=== PATIENT | male | born 1955 | race Caucasian/White ===

== ENCOUNTER → 2016-10-17 19:08 | Outpatient (CLI) | payer MEDICAID ==
[2015-09-12 08:35] VITALS: BMI 23.5
[~2016-10-17 19:08] MED LIST: ACETAMINOPHEN500 M1 PO; ALDACTONE50 MG PO; ATIVAN0.5 MG PO; BAYER CHEWABLE81 MG PO; COREG6.25 MG PO; COZAAR50 MG PO; EFFIENT10 MG PO; GLUCOPHAGE500 MG PO; IPRAT-ALBUT 0.5-3 ML UPD; K-DUR20 MEQ PO; LASIX40 MG PO; LEVAQUIN500 MG PO; LIPITOR20 MG PO; LISINOPRIL10 MG PO; MAG-OX 400 MG400 MG PO; METOPROLOL TART50 MG PO; PEPCID20 MG PO; PREDNISONE10 MG PO; TESSALON PERLE100 MG PO; ZOFRAN4 MG PO
[2016-10-17 20:07] LABS: CHOL - HDL RATIO 4.2 ratio (2.3-4.9); LDL-HDL RATIO 2.8 ratio (1.5-3.5)
== END | disposition home or self-care (01) ==
LOC: D.LABREF 19:08
PROVIDERS: Internal Medicine Interventional Cardiology
DX: E78.5 Hyperlipidemia, unspecified (principal)

== ENCOUNTER 2017-09-05 18:49 | Inpatient (IN) | payer MEDICAID ==
[~2017-09-05] VITALS: Ht 170.2 cm; Wt 74.1 kg
[2017-09-05 19:28] LABS: BASOPHILS 0.1 % (0-2); EOSINOPHILS 0.4 % (0-7); HEMATOCRIT 41.1 % (42.0-54.0); HEMOGLOBIN 14.1 g/dL (13.5-17.5); IMMATURE GRANULOCYTES 0.3 % (0-5); LYMPHOCYTES 7.6 % (15-50); MCH 31.2 pg (26.0-34.0); MCHC 34.3 g/dL (31.0-37.0); MCV 90.9 fL (80.0-100.0); MEAN PLATELET VOLUME 11.7 fL (7.4-10.4); MONOCYTES 8.4 % (2-11); NEUTROPHILS 83.2 % (40-80); PLATELET COUNT 151 10x3/uL (130-400); RBC 4.52 10x6/uL (4.20-6.10); WBC 11.5 10x3/uL (4.8-10.8)
[2017-09-05 19:42] LABS: INR 1.21 (0.85-1.17); PROTIME 14.9 SECONDS (11.6-15.0)
[2017-09-05 19:44] LABS: D-DIMER-QUANTITATIVE 2.01 ug/mLFEU (0.20-0.54)
[2017-09-05 20:09] VITALS: BP 93/61
[2017-09-05 20:24] VITALS: BP 89/43
[2017-09-05 20:24] LABS: ALKALINE PHOSPHATASE 94 U/L (46-116); ALT (SGPT) 68 U/L (10-68); CALC OSMOLALITY 278 mosm/kg (275-300); CALCIUM 9.1 mg/dL (8.5-10.1); CARBON DIOXIDE 27.9 mmol/L (21.0-32.0); CHLORIDE - SERUM 96 mmol/L (98-107); CKMB 2.5 U/L (0.0-3.6); CREATINE KINASE 223 UL (21-232); CREATININE - SERUM 1.1 mg/dL (0.6-1.3); GLUCOSE 207 mg/dL (74-106); PRO BNP 6417 pg/mL (0-125); PROTEIN - SERUM 7.6 g/dL (6.4-8.2); SODIUM 135 mmol/L (136-145); UREA NITROGEN 20 mg/dL (7-18); eGFR NON AFRICAN AMERICAN 72 mL/min (90-120)
[2017-09-05 20:26] LABS: POTASSIUM - SERUM 2.8 mmol/L (3.5-5.1)
[2017-09-05 20:27] LABS: TROPONIN-I 0.171 ng/mL (0.000-0.060)
[2017-09-05 20:48] LABS: APPEARANCE CLEAR (CLEAR); BILIRUBIN NEGATIVE (NEGATIVE); COLOR YELLOW (YELLOW); GLUCOSE NEGATIVE (NEGATIVE); KETONE NEGATIVE (NEGATIVE); NITRITE NEGATIVE (NEGATIVE); PROTEIN NEGATIVE (NEGATIVE); SPECIFIC GRAVITY 1.015 (1.005-1.020); UROBILINOGEN NORMAL (NORMAL)
[2017-09-05 20:57] LABS: UDS - AMPHET POSITIVE QUAL (NEGATIVE); UDS - BARB NEGATIVE QUAL (NEGATIVE); UDS - BENZO NEGATIVE QUAL (NEGATIVE); UDS - COCAINE NEGATIVE QUAL (NEGATIVE); UDS - OPIATE NEGATIVE QUAL (NEGATIVE); UDS - PCP NEGATIVE QUAL (NEGATIVE); UDS - THC NEGATIVE QUAL (NEGATIVE)
[2017-09-05 21:00] VITALS: BP 72/36
[2017-09-05 21:29] VITALS: BP 64/23
[2017-09-05 22:31] VITALS: BP 88/64
[2017-09-05 23:29] VITALS: BP 109/65
[2017-09-06] VITALS (82 sets, daily range): BP systolic 87–133; BP diastolic 46–96; BMI 22.5; BMI 22.4
[2017-09-06] MEDS ORDERED: FLOMAX0.4 MG PO (02:31)
[2017-09-06] MEDS ORDERED: LANTUS INSULIN10 ML SC (02:31)
[2017-09-06] MEDS ORDERED: NITROQUICK0.4 MG SL (03:00)
[2017-09-06 03:11] LABS: BASOPHILS 0.1 % (0-2); EOSINOPHILS 0 % (0-7); HEMATOCRIT 38.8 % (42.0-54.0); HEMOGLOBIN 13.2 g/dL (13.5-17.5); IMMATURE GRANULOCYTES 0.4 % (0-5); LYMPHOCYTES 6.6 % (15-50); MCH 30.8 pg (26.0-34.0); MCV 90.7 fL (80.0-100.0); MEAN PLATELET VOLUME 11.6 fL (7.4-10.4); MONOCYTES 6.8 % (2-11); NEUTROPHILS 86.1 % (40-80); PLATELET COUNT 139 10x3/uL (130-400); RBC 4.28 10x6/uL (4.20-6.10); WBC 13.5 10x3/uL (4.8-10.8)
[2017-09-06 03:52] LABS: ALBUMIN 2.9 g/dL (3.4-5.0); ALKALINE PHOSPHATASE 87 U/L (46-116); ALT (SGPT) 59 U/L (10-68); CALCIUM 8.3 mg/dL (8.5-10.1); CHLORIDE - SERUM 99 mmol/L (98-107); CKMB 1.9 U/L (0.0-3.6); CREATININE - SERUM 1.1 mg/dL (0.6-1.3); PHOSPHOROUS 4.5 mg/dL (2.5-4.9); PROTEIN - SERUM 7.2 g/dL (6.4-8.2); SODIUM 138 mmol/L (136-145); UREA NITROGEN 20 mg/dL (7-18); eGFR NON AFRICAN AMERICAN 72 mL/min (90-120)
[2017-09-06 03:59] LABS: CALC OSMOLALITY 288 mosm/kg (275-300); CREATINE KINASE 316 UL (21-232); GLUCOSE 275 mg/dL (74-106); MAGNESIUM - SERUM 0.6 mg/dL (1.8-2.4); POTASSIUM - SERUM 3.3 mmol/L (3.5-5.1)
[2017-09-06 04:00] LABS: TROPONIN-I 0.124 ng/mL (0.000-0.060)
[2017-09-07] VITALS (78 sets, daily range): BP systolic 72–118; BP diastolic 44–98
[2017-09-07 05:11] LABS: BASOPHILS 0.2 % (0-2); EOSINOPHILS 0.7 % (0-7); HEMATOCRIT 41.8 % (42.0-54.0); HEMOGLOBIN 14.1 g/dL (13.5-17.5); IMMATURE GRANULOCYTES 0.3 % (0-5); LYMPHOCYTES 16.7 % (15-50); MCH 30.3 pg (26.0-34.0); MCHC 33.7 g/dL (31.0-37.0); MCV 89.7 fL (80.0-100.0); MEAN PLATELET VOLUME 12.4 fL (7.4-10.4); MONOCYTES 9.4 % (2-11); NEUTROPHILS 72.7 % (40-80); RBC 4.66 10x6/uL (4.20-6.10)
[2017-09-07 05:25] LABS: ALBUMIN 2.6 g/dL (3.4-5.0); ALKALINE PHOSPHATASE 93 U/L (46-116); CALCIUM 7.7 mg/dL (8.5-10.1); CARBON DIOXIDE 26.5 mmol/L (21.0-32.0); CHLORIDE - SERUM 94 mmol/L (98-107); PHOSPHOROUS 3.7 mg/dL (2.5-4.9); PROTEIN - SERUM 6.7 g/dL (6.4-8.2); SODIUM 127 mmol/L (136-145); eGFR NON AFRICAN AMERICAN 81 mL/min (90-120)
[2017-09-07 05:31] LABS: ALT (SGPT) 76 U/L (10-68); CALC OSMOLALITY 264 mosm/kg (275-300); GLUCOSE 172 mg/dL (74-106); POTASSIUM - SERUM 3.8 mmol/L (3.5-5.1); UREA NITROGEN 29 mg/dL (7-18)
[2017-09-07 05:35] LABS: INR 1.88 (0.85-1.17); PROTIME 21.1 SECONDS (11.6-15.0)
[2017-09-07 05:37] LABS: PLATELET COUNT 147 10x3/uL (130-400); WBC 8.6 10x3/uL (4.8-10.8)
[2017-09-08] VITALS (30 sets, daily range): BP systolic 91–135; BP diastolic 65–95; Ht 170.2 cm; Wt 74.1 kg
[2017-09-08 03:45] LABS: BASOPHILS 0.2 % (0-2); EOSINOPHILS 0.5 % (0-7); HEMATOCRIT 41.4 % (42.0-54.0); HEMOGLOBIN 14.2 g/dL (13.5-17.5); IMMATURE GRANULOCYTES 0.3 % (0-5); LYMPHOCYTES 12.5 % (15-50); MCH 30.9 pg (26.0-34.0); MCHC 34.3 g/dL (31.0-37.0); MCV 90.2 fL (80.0-100.0); MONOCYTES 9.1 % (2-11); NEUTROPHILS 77.4 % (40-80); PLATELET COUNT 169 10x3/uL (130-400); RBC 4.59 10x6/uL (4.20-6.10); RDW 13.8 % (11.5-14.5); WBC 9.4 10x3/uL (4.8-10.8)
[2017-09-08 04:08] LABS: ALBUMIN 2.6 g/dL (3.4-5.0); ANION GAP 12.6 mmol/L (8-16); BILIRUBIN - TOTAL 1.32 mg/dL (0.2-1.3); CALCIUM 8.3 mg/dL (8.5-10.1); CARBON DIOXIDE 27.9 mmol/L (21.0-32.0); CREATININE - SERUM 1.1 mg/dL (0.6-1.3); PHOSPHOROUS 2.8 mg/dL (2.5-4.9); POTASSIUM - SERUM 3.5 mmol/L (3.5-5.1); PROTEIN - SERUM 7.7 g/dL (6.4-8.2)
[2017-09-09] VITALS: BP 107/71
[2017-09-09 04:00] VITALS: BP 129/83
[2017-09-09 05:41] LABS: BASOPHILS 0.1 % (0-2); EOSINOPHILS 0.4 % (0-7); HEMATOCRIT 39.8 % (42.0-54.0); HEMOGLOBIN 13.6 g/dL (13.5-17.5); IMMATURE GRANULOCYTES 0.3 % (0-5); LYMPHOCYTES 11.3 % (15-50); MCH 30.8 pg (26.0-34.0); MCHC 34.2 g/dL (31.0-37.0); MCV 90.2 fL (80.0-100.0); MEAN PLATELET VOLUME 11.9 fL (7.4-10.4); NEUTROPHILS 76.9 % (40-80); PLATELET COUNT 160 10x3/uL (130-400); RBC 4.41 10x6/uL (4.20-6.10); RDW 13.7 % (11.5-14.5)
[2017-09-09 05:55] LABS: ANION GAP 15.8 mmol/L (8-16); CALCIUM 8.3 mg/dL (8.5-10.1); CARBON DIOXIDE 23.1 mmol/L (21.0-32.0); CREATININE - SERUM 1.1 mg/dL (0.6-1.3); MAGNESIUM - SERUM 2.1 mg/dL (1.8-2.4); POTASSIUM - SERUM 3.9 mmol/L (3.5-5.1)
[2017-09-09 08:49] VITALS: BP 122/77
[2017-09-09 12:05] VITALS: BP 123/83
[2017-09-09 15:57] VITALS: BP 138/93
[2017-09-09 20:09] VITALS: BP 124/82
[2017-09-10] VITALS (7 sets, daily range): BP systolic 92–127; BP diastolic 68–84
[2017-09-10 05:49] LABS: BASOPHILS 0.2 % (0-2); EOSINOPHILS 0.4 % (0-7); HEMOGLOBIN 13.7 g/dL (13.5-17.5); IMMATURE GRANULOCYTES 0.7 % (0-5); LYMPHOCYTES 12.4 % (15-50); MCH 30.4 pg (26.0-34.0); MCHC 34.3 g/dL (31.0-37.0); MCV 88.7 fL (80.0-100.0); MEAN PLATELET VOLUME 11.6 fL (7.4-10.4); MONOCYTES 13.4 % (2-11); NEUTROPHILS 72.9 % (40-80); PLATELET COUNT 183 10x3/uL (130-400); RBC 4.51 10x6/uL (4.20-6.10); RDW 13.5 % (11.5-14.5); WBC 10.3 10x3/uL (4.8-10.8)
[2017-09-10 06:03] LABS: ANION GAP 14.6 mmol/L (8-16); CALCIUM 8.4 mg/dL (8.5-10.1); CARBON DIOXIDE 22.6 mmol/L (21.0-32.0); CREATININE - SERUM 1.2 mg/dL (0.6-1.3); MAGNESIUM - SERUM 2.4 mg/dL (1.8-2.4); POTASSIUM - SERUM 4.2 mmol/L (3.5-5.1)
[2017-09-11 04:56] VITALS: BP 104/71
[2017-09-11 05:11] LABS: BASOPHILS 0.2 % (0-2); EOSINOPHILS 0.1 % (0-7); HEMATOCRIT 41.3 % (42.0-54.0); HEMOGLOBIN 14.4 g/dL (13.5-17.5); LYMPHOCYTES 12.1 % (15-50); MCH 30.9 pg (26.0-34.0); MCHC 34.9 g/dL (31.0-37.0); MCV 88.6 fL (80.0-100.0); MEAN PLATELET VOLUME 11.1 fL (7.4-10.4); MONOCYTES 14.3 % (2-11); NEUTROPHILS 71.3 % (40-80); PLATELET COUNT 201 10x3/uL (130-400); RBC 4.66 10x6/uL (4.20-6.10); RDW 13.8 % (11.5-14.5)
[2017-09-11 05:33] LABS: WBC 12.9 10x3/uL (4.8-10.8)
[2017-09-11 05:50] LABS: ANION GAP 14.2 mmol/L (8-16); CALCIUM 8.4 mg/dL (8.5-10.1); CARBON DIOXIDE 22.9 mmol/L (21.0-32.0); CREATININE - SERUM 1.3 mg/dL (0.6-1.3); MAGNESIUM - SERUM 2.6 mg/dL (1.8-2.4)
[2017-09-11 05:54] LABS: POTASSIUM - SERUM 5.1 mmol/L (3.5-5.1)
[2017-09-11 08:40] VITALS: BP 128/85
[2017-09-11] MEDS ORDERED: ATIVAN1 MG PO (11:48)
[2017-09-11] MEDS ORDERED: FUROSEMIDE40 MG PO (11:48)
[2017-09-11 12:11] VITALS: BP 130/85
[2017-09-11 17:27] VITALS: BP 127/86
[2017-09-11 20:38] VITALS: BP 89/67
[2017-09-12 05:06] LABS: BASOPHILS 0.3 % (0-2); EOSINOPHILS 1.1 % (0-7); HEMATOCRIT 40.3 % (42.0-54.0); IMMATURE GRANULOCYTES 2.2 % (0-5); LYMPHOCYTES 13.4 % (15-50); MCH 30.9 pg (26.0-34.0); MCHC 34.7 g/dL (31.0-37.0); MEAN PLATELET VOLUME 11.1 fL (7.4-10.4); MONOCYTES 13.4 % (2-11); NEUTROPHILS 69.6 % (40-80); PLATELET COUNT 188 10x3/uL (130-400); RBC 4.53 10x6/uL (4.20-6.10)
[2017-09-12 05:31] VITALS: BP 89/64
[2017-09-12 05:31] LABS: ANION GAP 14.7 mmol/L (8-16); CALCIUM 8.3 mg/dL (8.5-10.1); CARBON DIOXIDE 22.3 mmol/L (21.0-32.0); CREATININE - SERUM 1.3 mg/dL (0.6-1.3); MAGNESIUM - SERUM 2.2 mg/dL (1.8-2.4)
[2017-09-12 07:00] VITALS: BP 108/76
[2017-09-12 12:31] VITALS: BP 126/85
[2017-09-14 16:08] LABS: AEROBE ID Final report (())
== END 2017-09-12 19:07 | disposition home or self-care (01) | DRG 871 ==
LOC: D.ER 18:49 → D.ICU 20:51 → D.M2 20:51 → D.CVICU 20:51 → D.ICU 22:30 → D.M2 09-08 18:37
PROVIDERS: Family Medicine; Internal Medicine Cardiovascular Disease; Internal Medicine Pulmonary Disease
DX: A41.9 Sepsis, unspecified organism (principal); I50.23 Acute on chronic systolic (congestive) heart failure; J96.21 Acute and chronic respiratory failure with hypoxia; J18.9 Pneumonia, unspecified organism; E87.2 Acidosis; J90 Pleural effusion, not elsewhere classified; I42.9 Cardiomyopathy, unspecified; J98.11 Atelectasis; I11.0 Hypertensive heart disease with heart failure; I95.9 Hypotension, unspecified; E11.9 Type 2 diabetes mellitus without complications; I10 Essential (primary) hypertension; F17.200 Nicotine dependence, unspecified, uncomplicated; J43.9 Emphysema, unspecified; J45.909 Unspecified asthma, uncomplicated; D72.829 Elevated white blood cell count, unspecified; I25.10 Atherosclerotic heart disease of native coronary artery without angina pectoris; I73.9 Peripheral vascular disease, unspecified; E87.6 Hypokalemia; D64.9 Anemia, unspecified; N40.0 Benign prostatic hyperplasia without lower urinary tract symptoms; R59.1 Generalized enlarged lymph nodes; Z77.090 Contact with and (suspected) exposure to asbestos

== ENCOUNTER 2017-09-19 08:45 | Inpatient (IN) | payer MEDICAID ==
[~2017-09-19] VITALS: Ht 170.2 cm; Wt 62.7 kg
--- NOTE | ~2017-09-19 | HEMODYNAMI ---
PATIENT:SATNAM SHAIKH MEDICAL RECORD: [id number] : 57 LOCATION:[facility] D.2118 ADMISSION DATE: 09/19/17 Generatedon:09/23/201710:49 Patient name: SATNAM SHAIKH Patient #: [id number] SSN: : Date of study: 09/23/2017 Page: Of Hemodynamic Procedure Report Patient Data Patient Demographics Procedure consent was obtained First Name: SATNAM Gender: Male Last Name: HAWA : 1955 [facility] Initial: TERESE Age: 62 year(s) Patient #: [id number] Race: Additional ID: [id number] Contact details Address: [address] [place] [address] [place] State: [place] City: [facility] Zip code: [address] Past Medical History Allergies Allergen Reaction Date Comments Reported SHANNON inhibitors 09/12/2015 Other allergy 09/23/2017 TORADOL, SHANNON INHIBITORS Admission Admission Data Admission Date: 09/19/2017 Admission Time: 11:21 Room #: D.2118 Lab Results Lab Result Date: 09/23/2017 Lab Result Time: 0:00 Biochemistry Name Units Result Min Max BUN mg/dl 18 --(---*)-- 7 18 Creatinine mg/dl 0.8 --(-*--)-- 0.6 1.3 CBC Name Units Result Min Max Hemoglobin g/dl 13.7 --(*---)-- 13.5 17.5 Procedure Procedure Types Cath Procedure PCI Procedure Coronary Stent Coronary Stent Initial Procedure Description Procedure Date Procedure Date: 09/23/2017 Procedure Start Time: 10:36 Procedure End Time: 10:46 Procedure Staff Name Function Vijay Peñaloza MD Performing Physician Cachorro Paulino RN Nurse Brannon Richmond RT Scrub Mary Galeana RT Monitor Procedure Data Cath Procedure Fluoroscopy Diagnostic fluoroscopy Total fluoroscopy Time: 1.1 time: 1.1 min min Diagnostic fluoroscopy Total fluoroscopy dose: 133 dose: 133 mGy mGy Contrast Material Contrast Material Type Amount (ml) Isovue 300 40 Entry Location Entry Primary Successful Side Size Upsize Upsize Entry Closure Howard ccessful Closure Location (Fr) 1 (Fr) 2 (Fr) Remarks Device Remarks Radial Right 6 Fr Mechanical artery Short Compression Estimated blood loss: 10 ml Procedure Complications No complications Procedure Medications Medication Administration Route Dosage 0.9% NaCl I.V. 100 ml/hr Oxygen etCO2 Nasal cannula 3 l/min Heparin Flush Bag added to field 2 bags (1000units/500ml NS) Lidocaine 2% added to field 20 Radial Cocktail added to field 1 syringe (Verapomil 2mg/Nitro 400mcg/Heparin 1500units) Versed I.V. 1 mg Fentanyl I.V. 50 mcg Fentanyl I.V. 50 mcg Radial Cocktail I.A. 1 syringe (Verapomil 2mg/Nitro 400mcg/Heparin 1500units) Heparin Bolus I.V. 4000 units Hemodynamics Rest HGB: 13.7 (g/dl) Heart Rate: 93 (bpm) Snapshots Pre Cath Intra NCS Post Cath Vital Signs Time Heart Resp SPO2 etCO2 NIBP Rhythm Pain Sedation Rate (ipm) (%) (mmHg) (mmHg) Status Level (bpm) 10:31:09 92 32 99 108/77(95) NSR 0 (11) 10(A) , No pain 10:35:37 93 30 99 12 102/79(91) NSR 0 (11) 10(A) , No pain 10:40:02 89 19 95 20.3 91/72(81) NSR 0 (11) 10(A) , No pain 10:44:26 92 14 94 9.7 91/65(77) NSR 0 (11) 10(A) , No pain Medications Time Medication Route Dose Verified Delivered Reason Not es Effectiveness by by 10:29:00 0.9% NaCl I.V. 100 Cachorro Cachorro Per physician ml/hr Lora Paulino RN RN 10:29:08 Oxygen etCO2 3 l/min Cachorro Cachorro Per physician Nasal Lora Paulino cannula RN RN 10:29:40 Heparin Flush added 2 bags Cachorro Cachorro used for Bag to Lorigan Lorigan procedure (1000units/500ml field RN RN NS) 10:29:54 Lidocaine 2% added 20ml Cachorro Cachorro for local to vial Lorigan Lorigan anesthetic RN RN 10:30:07 Radial Cocktail added 1 Cachorro Cachorro used for (Verapomil to syringe Lora Paulino procedure 2mg/Nitro field RN RN 400mcg/Hepari 10:36:14 Versed I.V. 1 mg Cachorro Cachorro for sedation Lora Paulino RN RN 10:36:22 Fentanyl I.V. 50 mcg Cachorro Cachorro for sedation Lora Paulino RN RN 10:37:25 Fentanyl I.V. 50 mcg Cachorro Cachorro for sedation Lora Paulino RN RN 10:37:38 Radial Cocktail I.A. 1 Cachorro Vijay for (Verapomil syringe Lora Peñaloza MD vasodilation 2mg/Nitro RN 400mcg/Hepari 10:37:59 Heparin Bolus I.V. 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 Start room use. 10:08:42 Plan of Care:Hemodynamics will remain stable., Cardiac rhythm will remain stable., Comfort level will be maintained., Respiratory function will remain adequate., Patient/ family verbilizes understanding of procedure., Procedure tolerated without complication., Recovers from procedure without complications.. 10:19:59 Patient received from Med II to CCL 1 Alert and oriented. Tansferred to table in Supine position. 10:20:00 Correct patient and procedure confirmed by team. 10:20:00 Warm blankets applied, and chrissie hugger turned on for patient comfort. 10:20:01 Signed procedure consent form obtained from patient. 10:20:02 ECG and BP/O2 sat monitors applied to patient. 10:29:00 0.9% NaCl 100 ml/hr I.V. was administered by Cachorro Paulino RN; Per physician; 10:29:08 Oxygen 3 l/min etCO2 Nasal cannula was administered by Cachorro Paulino RN; Per physician; 10:29:40 Heparin Flush Bag (1000units/500ml NS) 2 bags added to field was administered by Cachorro Paulino RN; used for procedure; 10:29:54 Lidocaine 2% 20ml vial added to field was administered by Cachorro Paulino RN; for local anesthetic; 10:30:07 Radial Cocktail (Verapomil 2mg/Nitro 400mcg/Heparin 1500units) 1 syringe added to field was administered by Cachorro Paulino RN; used for procedure; 10:30:14 Vital chart was started 10:30:32 Baseline sample Acquired. 10:30:38 Rhythm: sinus rhythm 10:30:39 Full Disclosure recording started 10:30:46 Pre-op teaching completed and patient verbalized understanding. 10:30:46 Pre-procedure instructions explained to patient. 10:30:46 H&P Date Dictated: 09/23/2017 Within 30 days and on chart.. 10:30:49 Family unavailable. 10:30:50 Patient NPO since Midnight. 10:31:03 Patient allergic to Other allergyTORADOL, SHANNON INHIBITORS 10:31:06 Is the patient allergic to Iodine/contrast media? No. 10:31:08 Is patient on blood thinner?Yes 10:31:11 ACC The patient was administered the following blood thiners within the last 24 hours: ACCPlavix 10:31:16 Patient diabetic? Yes. 10:31:17 If diabetic: On Metformin? Yes 10:31:22 If on Metformin: Last Dose? 09/19/2017 10:31:27 Previous problem with sedation/anesthesia? No ? 10:31:29 Snore? Yes 10:31:30 Sleep apnea? No 10:31:32 Deviated septum? No 10:31:33 Sticks out tongue? Yes 10:31:33 Opens mouth fully? Yes 10:31:38 Airway obstruction? Yes PNEUMONIA 10:31:41 Dentures? Yes ? 10:31:43 Modified Nikolay's test Ulnar < 7 seconds 10:31:45 Patient pain scale 0/10 ?. 10:31:51 IV patent on arrival in right forearm with 0.9% NaCl at O. 10:32:10 Lab Result : BUN 18 mg/dl 10:32:11 Lab Result : Hemoglobin 13.7 g/dl 10:32:11 Lab Result : Creatinine 0.8 mg/dl 10:32:13 Lab results completed and on chart. 10:32:18 Right Radial & Left Groin area was prepped with chlora-prep and draped in sterile fashion 10:32:19 Sharps counted by scrub and verified by R.N. 10:32:19 Alarms reviewed by RJulita N. 10:32:20 Final Timeout: patient, procedure, and site verified with staff and physician. All members of the team are in agreement. 10:32:20 --------ALL STOP TIME OUT------ 10:32:23 Right Radial & Left Groin site verified by team. 10:32:25 Physical assessment completed. ASA score P 2 - A patient with mild systemic disease as per Vijay Peñaloza MD. 10:32:28 Sedation plan: IV Moderate Sedation Medication:Versed, Fentanyl 10:32:37 Use device set CATH PACK 10:32:39 ACIST Manifold (05410) opened to sterile field. 10:32:39 ACIST Hand Control (44224) opened to sterile field. 10:32:39 ACIST Syringe (34957) opened to sterile field. 10:32:40 Bag Decanter (2002S) opened to sterile field. 10:32:40 Medline Cath Pack ([id number]) opened to sterile field. 10:32:41 DIAGNOSTIC WIRE .035 260cm J wire (074637) opened to sterile field. 10:33:09 CHOICE PT Extra Support 182cm wire ([id number]) opened to sterile field. 10:33:09 SHEATH 6FR Slender ([id number]) opened to sterile field. 10:33:10 INFLATOR Merit BasixCompak (RP1992) opened to sterile field. 10:35:54 GUIDE 6FR XBLAD 3.5 catheter ([id number]) opened to sterile field. 10:36:08 Zero performed for pressure channel P1 10:36:14 Procedure started. 10:36:14 Versed 1 mg I.V. was administered by Cachorro Paulino RN; for sedation; 10:36:21 Local anesthetic to right radial artery with Lidocaine 2% by Vijay Peñaloza MD.INITIAL ACCESS ONLY 10:36:22 Fentanyl 50 mcg I.V. was administered by Cachorro Paulino RN; for sedation; 10:36:45 A 6 Fr Short sheath was inserted into the Right Radial artery 10:37:08 6 Fr XBLAD 3.5 guide catheter was inserted over the wire 10:37:25 Fentanyl 50 mcg I.V. was administered by Cachorro Paulino RN; for sedation; 10:37:38 Radial Cocktail (Verapomil 2mg/Nitro 400mcg/Heparin 1500units) 1 syringe I.A. was administered by Vijay Peñaloza MD; for vasodilation; 10:37:59 Heparin Bolus 4000 units I.V. was administered by Cachorro Paulino RN; for anticoagulation; 10:39:31 CHOICE ES 182 wire advanced. 10:39:34 Wire advanced across lesion. 10:40:25 Place stent Inflation Number: 1 A GRACIELA RX 3.0 x 08 stent ([id number]) was prepped and advanced across the Prox LAD. The stent was deployed at 17 CARISSA for 0:10 (min:sec). 10:40:38 Stent catheter was removed intact over wire. 10:40:39 Guide catheter removed. 10:40:39 Wire removed. 10:41:21 Procedure ended.(Physican Out) 10:41:31 TR BAND Standard ([id number]) opened to sterile field. 10:41:42 Sheath removed intact; hemostasis achieved with Mechanical Compression to the Right Radial artery. 10:43:17 Fluoroscopy time 01.10 minutes. 10:43:21 Fluoroscopy dose: 133 mGy 10:43:21 Flurop Dose total: 133 10:43:27 Contrast amount:Isovue 300 40ml. 10:43:28 Sharps counted by scrub and verified by R.N. 10:43:30 TR band inflated with 10cc of air. 10:43:34 Post-procedure physical assessment completed. ASA score P 2 - A patient with mild systemic disease as per Vijay Peñaloza MD. 10:43:40 Post procedure rhythm: sinus rhythm 10:43:42 Estimated blood loss: 10 ml 10:43:43 Patient needs reinforcement of post procedure teaching. 10:43:43 Post procedure instruction explained to patient.Patient verbalizes understanding. 10:44:48 Procedure and supply charges have been captured, reviewed, submitted and are correct. 10:44:50 Procedure Complication : No complications 10:44:52 Vital chart was stopped 10:44:53 See physician's report for complete and final results. 10:46:03 Report given to Pre/Post Procedure Room. 10:46:05 Patient transfered to Pre/Post Procedure Room with Bed. 10:46:07 Full Disclosure recording stopped 10:46:07 Procedure ended. 10:46:09 End room use (Document Last) Intervention Summary Intervention Notes Time ActionType Lesion and Equipment Used Action# Pressure Duration Attributes 10:40:[address] Place stent Prox LAD GRACIELA RX 3.0 x 1 17 00:10 08 stent ([id number]) Device Usage Item Name Manufacture Quantity Catalog Number [facility] Part Current M inimal Lot# / Charge Number Stock Stock Serial# Code ACIST Syringe Acist 1 18292 336315 561504 062690 2 0 (08271) Medical Systems Inc ACIST Hand Acist 1 97610 501034 666193 234207 5 Control Medical (55552) Systems Inc ACIST Manifold Acist 1 89362 627994 403352 991303 5 (54703) Medical Systems Inc Medline Cath Cardinal 1 [id number] 657759 51228 727538 5 Pack Health ([id number]) Bag Decanter Microtek 1 2001S 420838 86662 710994 5 (2001S) Medical Inc. DIAGNOSTIC St Bart 1 019925 061256 831276 958337 3 0 WIRE .035 260cm J wire (934782) SHEATH 6FR Terumo 1 [id number] 237231 618461 242259 4 0 Slender ([id number]) CHOICE PT [place] 1 [id number] 814380 541165 562312 5 Extra Support Scientific 182cm wire ([id number]) INFLATOR Merit Merit 1 IL6059 226565 969482 015076 1 5 [facility] (QK3279) GUIDE 6FR Cardinal 1 [id number] 295420 074696 728938 1 0 XBLAD 3.5 Health catheter (77458739) GRACIELA RX 3.0 x Medtronic 1 [id number] 224876 8493369 258492 5 [id number] 08 stent ([id number]) TR BAND Terumo 1 [id number] 651366 474346 958876 4 0 Standard ([id number]) Signature Audit [place] Stage Time Signature Unsigned Intra-Procedure 09/23/2017 Mary Galeana 10:49:29 AM RT(R) Signatures Monitor : Mary Galeana Signature : RT Date : Time : [facility] [address] [place] [address]
--- NOTE | ~2017-09-19 | OP ---
PATIENT NAME: SATNAM SHAIKH MEDICAL RECORD: [id number] :57 LOCATION:[facility] ADMISSION DATE:09/19/17 SURGEON: CAROLA JOHNSON MD DATE OF OPERATION: 09/23/2017 DATE OF SERVICE: 09/23/2017 PROCEDURES: 1. PTCA stent LAD. 2. Selective coronary angiography. INDICATION: Angina and coronary artery disease. PROCEDURE IN DETAIL: After informed consent was obtained and after a detailed description of the risks, benefits as well as alternative therapies, the patient elected to proceed with angiogram and angioplasty. The right radial area was prepped and draped in normal sterile fashion. Right radial artery was cannulated via modified Seldinger technique with placement of 6-Emirati sheath. All catheters exchanged through this sheath. FINDINGS: Left anterior descending has 85% stenosis proximally. This was addressed with a 3.0 x 9 mm Claudio stent. Result was 0% residual stenosis. OVERALL IMPRESSION: Successful percutaneous transluminal coronary angioplasty stent of the left anterior descending going from 90% initial stenosis to 0% residual. TRANSINT:[id number] Voice Confirmation ID: [id number] DOCUMENT ID: [id number] CAROLA JOHNSON MD at 1207 CC: [id number] DICTATION DATE: 09/23/17 1046 PAVING CONTRACTOR: 09/23/17 1302 DIS IN 09/23/17 [id number] [place] [address]
--- NOTE | ~2017-09-19 | HEMODYNAMI ---
PATIENT:SATNAM SHAIKH MEDICAL RECORD: [id number] : 57 LOCATION:[facility] D.2118 ADMISSION DATE: 09/19/17 Generatedon:09/22/201712:26 Patient name: SATNAM SHAIKH Patient #: [id number] SSN: : Date of study: 09/22/2017 Page: Of Hemodynamic Procedure Report Patient Data Patient Demographics Procedure consent was obtained First Name: SATNAM Gender: Male Last Name: HAWA : 1955 [facility] Initial: TERESE Age: 62 year(s) Patient #: [id number] Race: Additional ID: [id number] Contact details Address: [address] [place] [address] circle State: [place] [facility] [place]: [address] Past Medical History Allergies Allergen Reaction Date Comments Reported SHANNON inhibitors 09/12/2015 Admission Admission Data Admission Date: 09/19/2017 Admission Time: 11:21 Room #: [facility] Procedure Procedure Types Cath Procedure Diagnostic Procedure [facility] w/Coronaries FFR/IVUS Intra-Coronary IVUS Initial PCI Procedure Coronary Stent Coronary Stent Initial Procedure Description Procedure Date Procedure Date: 09/22/2017 Procedure Start Time: 12:07 Procedure End Time: 12:23 Procedure Staff Name Function Vijay Peñaloza MD Performing Physician Howard Mcfarlane RN Machine Rope Maker Kimberly Seals RT Monitor Shayne Laboy RT Scrub Procedure Data Cath Procedure Fluoroscopy Diagnostic fluoroscopy Total fluoroscopy Time: 3.7 time: 3.7 min min Diagnostic fluoroscopy Total fluoroscopy dose: 619 dose: 619 mGy mGy Contrast Material Contrast Material Type Amount (ml) Isovue 300 96 Entry Location Entry Primary Successful Side Size Upsize Upsize Entry Closure Howard ccessful Closure Location (Fr) 1 (Fr) 2 (Fr) Remarks Device Remarks Radial Right 6 Fr Mechanical artery Short Compression Estimated blood loss: 5 ml Diagnostic catheters Device Type Used For End Catheter Placement DIAGNOSTIC [place] 110cm 5 Multi-vessel Fr catheter ([id number]) Angiography Procedure Complications No complications Procedure Medications Medication Administration Route Dosage Oxygen etCO2 Nasal cannula 2 l/min Heparin Flush Bag added to field 2 bags (1000units/500ml NS) 0.9% NaCl I.V. 100 ml/hr Radial Cocktail added to field 1 syringe (Verapomil 2mg/Nitro 400mcg/Heparin 1500units) Fentanyl I.V. 50 mcg Versed I.V. 1 mg Radial Cocktail I.A. 1 syringe (Verapomil 2mg/Nitro 400mcg/Heparin 1500units) Heparin Bolus I.V. 4000 units Integrilin (Bolus I.V. 6.8 ml 2mg/ml) Integrilin (Bolus wasted 3.2 ml 2mg/ml) Plavix P.O. 600 mg Hemodynamics Rest Heart Rate: 83 (bpm) Pressure Samples Time Site Value (mmHg) Purpose Heart Use Rate(bpm) 12:10 LV 68/35,37 Snapshot 104 Snapshots Pre Cath Intra NCS Post Cath Vital Signs Time Heart Resp SPO2 etCO2 NIBP Rhythm Pain Sedation Rate (ipm) (%) (mmHg) (mmHg) Status Level (bpm) 11:55:45 100 36 0 103/85(95) NSR 0 (11) 10(A) , No pain 12:00:09 101 31 0 110/90(98) NSR 0 (11) 10(A) , No pain 12:05:08 99 30 0 Measuring NSR 0 (11) 10(A) , No pain 12:05:55 101 27 0 109/85(99) NSR 0 (11) 10(A) , No pain 12:10:24 98 53 0 96/77(86) NSR 0 (11) 10(A) , No pain 12:14:50 95 31 0 90/73(83) NSR 0 (11) 10(A) , No pain 12:19:14 91 20 0 93/75(84) NSR 0 (11) 10(A) , No pain 12:25:19 96 34 98 0 105/86(97) NSR 0 (11) 10(A) , No pain Medications Time Medication Route Dose Verified Delivered Reason Not es Effectiveness by by 11:59:47 Oxygen etCO2 2 l/min Vijay Lawrence Per physician Nasal Taubrock Mcfarlane RN cannula 11:59:56 Heparin Flush added 2 bags Vijay Lawrence used for Bag to Jh Mcfarlane RN procedure (1000units/500ml field NS) 12:00:05 0.9% NaCl I.V. 100 Vijay Lawrence Per physician ml/hr Jh Mcfarlane RN 12:00:19 Radial Cocktail added 1 Vijya Lawrence used for (Verapomil to syringe Jh Mcfarlane RN procedure 2mg/Nitro field 400mcg/Heparin 1500units) 12:05:35 Fentanyl I.V. 50 mcg Vijay Lawrence for sedation Jh Mcfarlane RN 12:05:41 Versed I.V. 1 mg Vijay Lawrence for sedation Jh Mcfarlane RN 12:08:39 Radial Cocktail I.A. 1 Vijay Lawrence for (Verapomil syringe Jh Mcfarlane RN vasodilation 2mg/Nitro 400mcg/Heparin 1500units) 12:14:13 Heparin Bolus I.V. 4000 Vijay Lawrence for units Jh Mcfralane RN anticoagulation 12:16:40 Integrilin I.V. 6.8 ml Vijay Lawrence for (Bolus 2mg/ml) Jh Mcfalrane RN antiplatelet therapy 12:18:33 Integrilin wasted 3.2 ml Vijay Lawrence for (Bolus 2mg/ml) Jh Mcfarlane RN antiplatelet therapy 12:20:55 Plavix P.O. 600 mg Vijay Lawrence for Jh Mcfarlane RN antiplatelet therapy Procedure Log Time Note 11:30:29 Howard Mcfarlane RN sent for patient. Start room use. 11:42:30 Time tracking: Regular hours (M-F 7:00 - 5:00) 11:42:33 Plan of Care:Hemodynamics will remain stable., Cardiac rhythm will remain stable., Comfort level will be maintained., Respiratory function will remain adequate., Patient/ family verbilizes understanding of procedure., Procedure tolerated without complication., Recovers from procedure without complications.. 11:49:19 Patient received from Med II to CCL 1 Alert and oriented. Tansferred to table in Supine position. 11:49:20 Warm blankets applied, and chrissie hugger turned on for patient comfort. 11:49:21 Correct patient and procedure confirmed by team. 11:49:23 Signed procedure consent form obtained from patient. 11:49:24 ECG and BP/O2 sat monitors applied to patient. 11:55:03 Vital chart was started 11:59:47 Oxygen 2 l/min etCO2 Nasal cannula was administered by Howard Mcfarlane RN; Per physician; 11:59:56 Heparin Flush Bag (1000units/500ml NS) 2 bags added to field was administered by Howard Mcfarlane RN; used for procedure; 12:00:05 0.9% NaCl 100 ml/hr I.V. was administered by Howard Mcfarlane RN; Per physician; 12:00:19 Radial Cocktail (Verapomil 2mg/Nitro 400mcg/Heparin 1500units) 1 syringe added to field was administered by Howard Mcfarlane RN; used for procedure; 12:01:17 Baseline sample Acquired. 12:01:18 Full Disclosure recording started 12:01:21 H&P Date Dictated: 09/22/2017 New H&P dictated by physician.. 12:01:23 Pre-procedure instructions explained to patient. 12:01:23 Pre-op teaching completed and patient verbalized understanding. 12:01:25 Family in patients room. 12:01:26 Patient NPO since Midnight. 12:01:30 Is the patient allergic to Iodine/contrast media? No. 12:01:32 Was the patient premedicated? No 12:01:38 Is patient on blood thinner?No 12:01:39 Patient diabetic? Yes. 12:01:41 If diabetic: On Metformin? Yes 12:01:44 If on Metformin: Last Dose? 09/19/2017 12:01:48 Previous problem with sedation/anesthesia? No ? 12:01:51 Snore? Yes 12:01:53 Sleep apnea? No 12:01:54 Deviated septum? No 12:02:02 Sticks out tongue? Yes 12:02:10 Airway obstruction? Yes pneumonia 12:02:16 Dentures? Yes in tight 12:02:19 Pre procedure: right dorsailis pedis pulse 1+ Palpable, but thready & weak; easily obliterated 12:02:22 Pre procedure: left dorsailis pedis pulse 1+ Palpable, but thready & weak; easily obliterated 12:02:24 Patient pain scale 0/10 ?. 12:02:26 Modified Nikolay's test Radial < 7 seconds 12:02:36 IV patent on arrival in right forearm with 0.9% NaCl at O. 12:02:39 Lab results completed and on chart. 12:02:49 Right Radial & Left Groin area was prepped with chlora-prep and draped in sterile fashion 12:02:50 Alarms reviewed by R. N. 12:02:51 Sharps counted by scrub and verified by R.N. 12:02:52 Physician arrived 12:02:52 --------ALL STOP TIME OUT------ 12::53 Final Timeout: patient, procedure, and site verified with staff and physician. All members of the team are in agreement. 12:02:55 Right Radial & Left Groin site verified by team. 12:02:58 Physical assessment completed. ASA score P 2 - A patient with mild systemic disease as per Vijay Peñaloza MD. 12:03:02 Sedation plan: IV Moderate Sedation Medication:Versed, Fentanyl 12:03:15 Use device set Radial Dx or PCI 12:03:16 ACIST Syringe (37644) opened to sterile field. 12:03:16 Medline Cath Pack ([id number]) opened to sterile field. 12:03:17 Bag Decanter (2002S) opened to sterile field. 12:03:17 DIAGNOSTIC WIRE .035 260cm J wire (224401) opened to sterile field. 12:03:18 ACIST Hand Control (88639) opened to sterile field. 12:03:18 ACIST Manifold (47791) opened to sterile field. 12:03:19 Tegaderm 4 x 4 (1626W) opened to sterile field. 12:03:19 MBrace Wrist Support ([id number]) opened to sterile field. 12:03:20 SHEATH 6Fr Prelude Radial ([id number]) opened to sterile field. 12:05:35 Fentanyl 50 mcg I.V. was administered by Howard Mcfarlane RN; for sedation; 12:05:41 Versed 1 mg I.V. was administered by Howard Mcfarlane RN; for sedation; 12:05:49 Procedure started. 12:07:39 Local anesthetic to right radial artery with Lidocaine 2% by Vijay Peñaloza MD.INITIAL ACCESS ONLY 12:07:52 A 6 Fr Short sheath was inserted into the Right Radial artery 12:08:39 Radial Cocktail (Verapomil 2mg/Nitro 400mcg/Heparin 1500units) 1 syringe I.A. was administered by Howard Mcfarlane RN; for vasodilation; 12:10:14 A DIAGNOSTIC [place] 110cm 5 Fr catheter (715168) was advanced over the wire and used for Multi-vessel Angiography. 12:10:20 LV hemodynamics recorded. 12:10:21 LV gram done using MARTINEZ 12:10:24 Injector settings: Ml/sec: 5, Volume: 15, 12:10:30 EF : 20 % 12:10:33 LCA angiography performed. 12:10:36 Injector settings: Ml/sec: 3, Volume: 6, 12:12:00 RCA angiography performed. 12:12:03 Injector settings: Ml/sec: 3, Volume: 6, 12:12:06 Catheter removed. 12:12:07 Proceeding to intervention. 12:13:43 Alpine Weston Eagleye IVUS Catheter (67916G) opened to sterile field. 12:13:44 CHOICE PT Extra Support 182cm wire ([id number]) opened to sterile field. 12:13:45 INFLATOR Merit BasixCompak (SX8628) opened to sterile field. 12:14:13 Heparin Bolus 4000 units I.V. was administered by Howard Mcfarlane RN; for anticoagulation; 12:14:18 GUIDE 6FR EBU 3.5 catheter ([id number]) opened to sterile field. 12:14:36 6 Fr ebu 3.5 guide catheter was inserted over the wire 12:14:41 choice pt wire advanced. 12:14:46 Wire advanced across lesion. 12:14:51 IVUS catheter advanced over wire. 12:16:40 Integrilin (Bolus 2mg/ml) 6.8 ml I.V. was administered by Howard Mcfarlane RN; for antiplatelet therapy; 12:17:19 IVUS pass to Circ lesion performed. 12:17:20 IVUS catheter removed over wire. 12:18:31 Place stent Inflation Number: 1 A GRACIELA RX 3.0 x 26 stent ([id number]) was prepped and advanced across the Mid CX. The stent was deployed at 15 CARISSA for 0:10 (min:sec). 12:18:33 Integrilin (Bolus 2mg/ml) 3.2 ml wasted was administered by Howard Mcfarlane RN; for antiplatelet therapy; 12:18:52 Inflation number: 2 The stent balloon was then re-inflated across the Mid CX to 19 CARISSA for 0:10 (min:sec). 12:19:20 Inflation number: 3 The stent balloon was then re-inflated across the Mid CX to 11 CARISSA for 0:10 (min:sec). 12:20:36 Stent catheter was removed intact over wire. 12:20:37 Wire removed. 12:20:37 Guide catheter removed. 12:20:40 TR BAND Standard ([id number]) opened to sterile field. 12:20:54 Sheath removed intact; hemostasis achieved with Mechanical Compression to the Right Radial artery. 12:20:55 Plavix 600 mg P.O. was administered by Howard Mcfarlane RN; for antiplatelet therapy; 12:20:56 Procedure ended.(Physican Out) 12:21:42 Fluoroscopy time 03.70 minutes. 12:21:47 Fluoroscopy dose: 619 mGy 12:21:47 Flurop Dose total: 619 12:21:51 Contrast amount:Isovue 300 96ml. 12:21:53 Sharps counted by scrub and verified by R.N. 12:21:56 TR band inflated with 12cc of air. 12:22:02 Insertion/operative site no bleeding no hematoma. 12:22:20 Post right radial artery:stable 12:22:22 Post Procedure Pulses reassessed and unchanged 12:22:25 Post procedure rhythm: unchanged. 12:22:28 Estimated blood loss: 5 ml 12:22:30 Post procedure instruction explained to patient.Patient verbalizes understanding. 12:22:30 Patient needs reinforcement of post procedure teaching. 12:22:56 Procedure type changed to Cath procedure, Diagnostic procedure, LHC, LHC w/Coronaries, FFR/IVUS, Intra-Coronary IVUS Initial, PCI procedure, Coronary Stent, Coronary Stent Initial 12:22:57 Procedure and supply charges have been captured, reviewed, submitted and are correct. 12:23:01 Procedure Complication : No complications 12:23:04 Vital chart was stopped 12:23:04 See physician's report for complete and final results. 12:23:13 Report given to [facility]. 12:23:16 Patient transfered to [facility] with Stretcher. 12:23:18 Procedure ended. 12:23:18 Full Disclosure recording stopped 12:23:27 ACC-PCI Only Patient was given prescriptions, or instructed by Vijay Peñaloza MD to start/continue the following medications upon discharge: Plavix 12:23:28 End room use (Document Last) Intervention Summary Intervention Notes Time ActionType Lesion and Equipment Used Action# Pressure Duration Attributes 12:18:31 Place stent Mid CX GRACIELA RX 3.0 x 1 15 00:10 26 stent ([id number]) 12:18:52 Reinflate Mid CX GRACIELA RX 3.0 x 2 19 00:10 stent 26 stent balloon ([id number]) 12:19:20 Reinflate Mid CX GRACIELA RX 3.0 x 3 11 00:10 stent 26 stent balloon ([id number]) Device Usage Item Name Manufacture Quantity Catalog Number Hospital Part Current Minimal Lot# / Charge Number Stock Stock Serial# Code ACIST Syringe Acist 1 57999 400590 474875 960233 20 (66611) Medical Systems Inc Medline Cath Cardinal 1 [id number] 214511 08115 324398 5 Tensegrity Technologies ([id number]) Bag Decanter Microtek 1 2001S 436527 26459 397601 5 (2001S) Medical Inc. DIAGNOSTIC WIRE St Bart 1 333330 185306 123399 511137 30 .035 260cm J wire (518955) ACIST Hand Acist 1 06992 698344 533800 090850 5 Control (01385) Medical Systems Inc ACIST Manifold Acist 1 24487 690767 193918 032173 5 (13180) Medical Systems Inc Tegaderm 4 x 4 3M 1 1626W 168303 290807 359269 5 (1626W) MBrace Wrist Advanced 1 140-0250-00 509205 48877 018582 5 Support Vascular ([id number]) Dynamics SHEATH 6Fr Merit 1 [id number] 481389 576100 827383 5 Prelude Radial Medical ([id number]) DIAGNOSTIC Terumo 1 61-6657 719681 196688 316775 5 [place] 110cm 5 Fr catheter (158486) Alpine Alpine 1 66490F 183568 005383 279912 8 Weston Eagleye IVUS Catheter (03600I) CHOICE PT Extra [place] 1 [id number] 365397 435163 260037 5 Support 182cm Scientific wire ([id number]) INFLATOR Merit Merit 1 KZ7489 123527 293699 122106 15 [facility] Medical ([id number]) GUIDE 6FR EBU Medtronic 1 [id number] 427629 03775 049050 3 3.5 catheter ([id number]) GRACIELA RX 3.0 x Medtronic 1 [id number] 144354 5940605 142095 5 [id number] 26 stent ([id number]) TR BAND Terumo 1 [id number] 945930 173476 942266 40 Standard ([id number]) Signature Audit [place] Stage Time Signature Unsigned Intra-Procedure 09/22/2017 Kimberly Seals 12:26:53 PM RT(R) Signatures Monitor : Kimberly Seals RT Signature : Date : Time : [place] [id number] [place] [address]
--- NOTE | ~2017-09-19 | OP ---
PATIENT NAME: SATNAM SHAIKH MEDICAL RECORD: [id number] :57 LOCATION:D.M2 D.2118 ADMISSION DATE:09/19/17 SURGEON: CAROLA JOHNSON MD DATE OF OPERATION: 09/22/2017 PROCEDURES: 1. PTCA stent left circumflex. 2. Intravascular ultrasound. 3. Left heart catheterization. 4. Selective coronary angiography. 5. Left ventriculogram. INDICATION: Angina, coronary artery disease, cardiomyopathy, and congestive heart failure. PROCEDURE IN DETAIL: After informed consent was obtained and after a detailed description of the risks, benefits as well as alternative therapies, the patient elected to proceed with angiogram and angioplasty. The right radial area was prepped and draped in normal sterile fashion. Right radial artery was cannulated via modified Seldinger technique with placement of 6-Polish sheath. All catheters exchanged through this sheath. FINDINGS: The left ventriculogram was performed in standard 30-degree MARTINEZ view, reveals global hypokinesis throughout all segments. Overall ejection fraction is 20%. SELECTIVE CORONARY ANGIOGRAPHY: 1. Right coronary artery is chronically totally occluded. Distal right coronary artery fills via the left to right collaterals. 2. Left anterior descending has an 80% stenosis in the proximal aspect. 3. Left circumflex has previously placed stents, these are widely patent; however, the area between the stents in the mid vessel has greater than 85% stenosis confirmed by intravascular ultrasound. PTCA STENT OF THE LEFT CIRCUMFLEX: The stent used is a 3.0 x 26 mm Claudio. The result was 0% residual. IMPRESSION: Successful percutaneous transluminal coronary angioplasty stent of the left circumflex going from 80% to 90% initial stenosis to 0% residual. PLAN: PTCA stent of the LAD in the near future. TRANSINT:[id number] Voice Confirmation ID: [id number] DOCUMENT ID: [id number] CAROLA JOHNSON MD at 1713 CC: [id number] DICTATION DATE: 09/22/17 1225 EMERGENCY VETERINARY ASSISTANT: 09/22/17 1233 ADM IN [place] [id number] [place] [address]
--- NOTE | ~2017-09-19 | DS ---
PATIENT:SATNAM ANDRADE :57 MEDICAL RECORD: [id number] DISCHARGE SUMMARY ADMISSION DATE: 09/19/17 DISCHARGE DATE: 09/23/17 DATE OF DISCHARGE: 09/23/2017. DIAGNOSES: 1. Angina. 2. Coronary artery disease. 3. PTCA stent LAD and left circumflex this admission. 4. Hypertension. 5. Hyperlipidemia. 6. Congestive heart failure. 7. Cardiomyopathy. HOSPITAL COURSE: Mr. Andrade presents with angina and heart failure symptomatology, found to have 3-vessel coronary artery disease with total occlusion of the RCA, significant disease of the LAD and circumflex, underwent successful PTCA stent of the left circumflex and LAD, had a good diuresis with IV diuresis as well as dobutamine. Discharged home with the addition of aspirin and Plavix to his medical regimen. He will follow up with [facility] in 1 month. TRANSINT:[id number] Voice Confirmation ID: [id number] DOCUMENT ID: [id number] CAROLA JOHNSON MD at 1207 CC: [id number] DICTATION DATE: 09/23/17 1045 MICROBIOLOGY TECHNICIAN: 09/23/17 1425 DIS IN 09/23/[address] [facility] [address] [place] [address]
--- NOTE | ~2017-09-19 | HP ---
PATIENT: SATNAM ANDRADE MEDICAL RECORD: [id number] ACCOUNT: [id number] LOCATION:[facility] EdelmiraCL01 : 57 ADMISSION DATE: 09/19/17 HISTORY AND PHYSICAL EXAMINATION DIAGNOSES: 1. Unstable angina. 2. Coronary artery disease. 3. Previous PTCA stent. 4. COPD. 5. Cardiomyopathy. 6. Smoking history 7. Hyperlipidemia. HISTORY OF PRESENT ILLNESS: Mr. Andrade presents with unstable anginal symptomatology, who has a past history of coronary artery disease, previous multivessel PTCA stent, past history of COPD and a cardiomyopathy. PHYSICAL EXAMINATION: GENERAL APPEARANCE: Well-nourished, well-developed, appears stated age. Level of distress, comfortable. PSYCHIATRIC: Mental status, alert, normal affect. Orientation, oriented to time, place and person. EYES: Lids and conjunctiva, noninjected. No discharge, no pallor. ENT: Lips, teeth, gums, normal dentition. Oropharynx, no cyanosis, no pallor. NECK: Carotid arteries, bilateral normal upstroke, no bruits, no thrills. JUGULAR VEINS: No jugular venous pressure or distention. CERVICAL LYMPH NODES: Nontender, nonenlarged. THYROID: Not enlarged. Nontender. No nodules. LUNGS: Respiratory effort, unlabored. CHEST: Normal curvature. No thoracic deformity. No chest wall tenderness. Percussion, resonant. Auscultation, clear. No wheezes, no rales, no rhonchi. CARDIOVASCULAR: Precordial exam, nondisplaced. No heaves or pericardial thrills. Rate and rhythm, regular. Heart sounds, normal S1, normal S2. No S3, no gallop, no rub. Systolic murmur, not heard. Diastolic murmur, not heard. EXTREMITIES: No cyanosis, no edema. Peripheral pulses, full and equal in all extremities, except as noted. No bruits appreciated. ABDOMEN: Soft, nondistended. Normal aorta. No bruit. Nontender. No masses. Liver, nontender, no hepatomegaly. Spleen, nontender, no splenomegaly. MUSCULOSKELETAL: No joint tenderness. No joint swelling. No erythema. NEUROLOGICAL: Normal gait, normal strength, normal tone. SKIN: Warm and dry. REVIEW OF SYSTEMS: The patient reports easy bruising but reports no swollen glands. The patient reports no fever, no night sweats, no significant weight gain, no significant weight loss. No significant exercise tolerance. The patient reports no dry eyes, no irritation, no vision change. Patient reports no difficulty hearing and no ear pain. Patient reports no frequent nose bleeds or nose and sinus problems. Patient reports on arm pain on exertion. No shortness of breath while lying down. No history of heart murmur. Patient reports no cough, no wheezing or coughing up blood. Patient reports no abdominal pain, no vomiting. Normal appetite. No diarrhea and not vomiting blood. No nausea and no constipation. Patient reports no incontinence. No difficulty urinating. No hematuria. No increased frequency. Patient reports no muscle aches. No weakness, no arthralgias, no back pain. No swelling of the HISTORY AND PHYSICAL [id number] HAWA,SATNAM TERESE extremities. Patient reports no abnormal mole, no jaundice, no rashes. Reports no loss of consciousness. No weakness and no numbness. No seizures, dizziness, or headaches. The patient reports no depression, no sleep disturbance, feeling safe in a relationship and no alcohol abuse. Patient reports on fatigue. Reports no runny nose or sinus pressure. No itching, no hives, and no frequent sneezing. OVERALL IMPRESSION: Unstable anginal symptomatology. We will proceed with coronary angiography. Further care depends upon findings of the angiography. TRANSINT:[id number] Voice Confirmation ID: [id number] DOCUMENT ID: [id number] CAROLA JOHNSON MD at 1325 CC: [id number] DICTATION DATE: 10/20/17 1016 CARE COMPANION: 10/20/17 1035 DIS IN 09/23/17 [place] [id number] [place] [id number]
[~2017-09-19 08:45] MED LIST changes: +ATIVAN1 MG PO; +FLOMAX0.4 MG PO; +FUROSEMIDE40 MG PO; +LANTUS INSULIN10 ML SC; +NITROQUICK0.4 MG SL
[2017-09-19 09:12] VITALS: BP 95/76; BMI 25.1
[2017-09-19 10:08] LABS: ANION GAP 10.6 mmol/L (8-16); CARBON DIOXIDE 32.2 mmol/L (21.0-32.0); MAGNESIUM - SERUM 1.2 mg/dL (1.8-2.4); POTASSIUM - SERUM 3.8 mmol/L (3.5-5.1)
[2017-09-19 13:40] VITALS: BP 92/62; BMI 25.1
[2017-09-19 15:41] VITALS: BP 106/71
[2017-09-19 21:24] VITALS: BP 94/71
[2017-09-20 01:30] VITALS: BP 91/63
[2017-09-20 06:28] VITALS: BP 71/47
[2017-09-20 08:02] VITALS: BP 91/65
[2017-09-20 09:52] VITALS: Ht 170.2 cm; Wt 62.7 kg
[2017-09-20 11:25] VITALS: BP 106/62
[2017-09-20 15:39] VITALS: BP 94/70
[2017-09-20 22:41] VITALS: BP 78/56
[2017-09-21 01:53] VITALS: BP 64/43
[2017-09-21 06:25] VITALS: BP 87/63
[2017-09-21 08:14] VITALS: BP 91/66
[2017-09-21 13:45] VITALS: BP 73/52
[2017-09-21 16:26] VITALS: BP 104/78
[2017-09-21 22:29] VITALS: BP 100/71
[2017-09-22 05:50] VITALS: BP 100/79
[2017-09-22 08:46] VITALS: BP 122/77
[2017-09-22 11:10] LABS: BASOPHILS 0.3 % (0-2); EOSINOPHILS 1.6 % (0-7); HEMATOCRIT 41.9 % (42.0-54.0); HEMOGLOBIN 13.7 g/dL (13.5-17.5); IMMATURE GRANULOCYTES 0.3 % (0-5); LYMPHOCYTES 16.4 % (15-50); MCH 30.2 pg (26.0-34.0); MCHC 32.7 g/dL (31.0-37.0); MCV 92.5 fL (80.0-100.0); MEAN PLATELET VOLUME 11.5 fL (7.4-10.4); MONOCYTES 11.1 % (2-11); NEUTROPHILS 70.3 % (40-80); PLATELET COUNT 99 10x3/uL (130-400); RBC 4.53 10x6/uL (4.20-6.10); RDW 14.5 % (11.5-14.5); WBC 6.8 10x3/uL (4.8-10.8)
[2017-09-22 11:11] LABS: CALC OSMOLALITY 282 mosm/kg (275-300); CARBON DIOXIDE 32.7 mmol/L (21.0-32.0); CHLORIDE - SERUM 98 mmol/L (98-107); CREATININE - SERUM 0.8 mg/dL (0.6-1.3); POTASSIUM - SERUM 3.9 mmol/L (3.5-5.1); SODIUM 135 mmol/L (136-145); UREA NITROGEN 18 mg/dL (7-18); eGFR NON AFRICAN AMERICAN > 90 mL/min (90-120)
[2017-09-22 11:12] LABS: GLUCOSE 292 mg/dL (74-106)
[2017-09-22 12:29] LABS: PLATELET ESTIMATE DECREASED
[2017-09-22 12:36] VITALS: BP 125/75
[2017-09-22 16:34] VITALS: BP 99/64
[2017-09-22 19:59] VITALS: BP 96/73
[2017-09-23 01:09] VITALS: BP 98/77
[2017-09-23 06:05] VITALS: BP 99/74
[2017-09-23] MEDS ORDERED: BAYER CHEWABLE81 MG PO (10:54)
[2017-09-23] MEDS ORDERED: PLAVIX75 MG PO (10:54)
== END 2017-09-23 14:35 | disposition home or self-care (01) | DRG 247 ==
LOC: D.CATH 08:45 → D.M2 11:20 → D.CATH 11:21 → D.CLR 11:21 → D.SDCHOLD 09-22 15:18 → D.M2 09-22 15:18 → D.CLR 09-23 10:52
PROVIDERS: Internal Medicine Interventional Cardiology
PROC: B240ZZ3 Ultrasonography of Single Coronary Artery, Intravascular (ICD-10-PCS; 2017-09-22)
PROC: 4A023N7 Measurement of Cardiac Sampling and Pressure, Left Heart, Percutaneous Approach (ICD-10-PCS; 2017-09-22)
PROC: B2111ZZ Fluoroscopy of Multiple Coronary Arteries using Low Osmolar Contrast (ICD-10-PCS; 2017-09-22)
PROC: B2151ZZ Fluoroscopy of Left Heart using Low Osmolar Contrast (ICD-10-PCS; 2017-09-22)
PROC: 027034Z Dilation of Coronary Artery, One Artery with Drug-eluting Intraluminal Device, Percutaneous Approach (ICD-10-PCS; 2017-09-22 11:30)
PROC: 027034Z Dilation of Coronary Artery, One Artery with Drug-eluting Intraluminal Device, Percutaneous Approach (ICD-10-PCS; principal; 2017-09-23 10:30)
DX: I25.119 Atherosclerotic heart disease of native coronary artery with unspecified angina pectoris (principal); Z95.5 Presence of coronary angioplasty implant and graft; I42.9 Cardiomyopathy, unspecified; I50.9 Heart failure, unspecified; I11.0 Hypertensive heart disease with heart failure; E78.5 Hyperlipidemia, unspecified

== ENCOUNTER 2017-10-12 10:09 | Inpatient (IN) | payer MEDICAID ==
[2017-10-12] VITALS (14 sets, daily range): BP systolic 89–115; BP diastolic 67–91; BMI 21.9
[~2017-10-12] VITALS: Ht 170.2 cm; Wt 72.5 kg
--- NOTE | ~2017-10-12 | EC ---
PATIENT:SATNAM SHAIKH DATE OF SERVICE: 10/12/17 SEX: M MEDICAL RECORD: [id number] DATE OF : 57 LOCATION:[place] [address] AGE OF PATIENT: 62 ADMISSION DATE: 10/12/17 REFERRING PHYSICIAN: INTERPRETING PHYSICIAN: CAROLA JOHNSON MD ECHOCARDIOGRAM REPORT ECHO CHARGES Date: CLINICAL DIAGNOSIS: ECHOCARDIOGRAPHIC MEASUREMENTS (adult normal given) AC root (d.<3.7cm) cm LV Septum d (<1.2 cm> cm Valve Excursion cm LV Septum (systole) cm Left Atria (s.<4.0cm> cm LVPW d(<1.2cm) cm RV (d.<2.3cm) cm LVPW (sytole) cm LV diastole(<5.6CM) cm MV E-F(>70mm/sec) cm LV systole cm LVOT Diameter cm MV exc.(>10mm) cm Est.ejection fraction (50-75%) % DOPPLER: LVIT cm/sec A cm/sec E cm/sec LA cm/sec RVSP mmHg LVOT cm/sec AOP1/2T m/s Asc. Ao cm/sec RVOT cm/sec RA cm/sec PA cm/sec AV Gradient Peak mmHg AV Mean mmHg AV Area cm MV Gradient Peak mmHg MV Mean mmHg MV Area cm COMMENTS: Nurse Assistant: Frit Burner: MIRIAM# Pericardial Effusion DATE OF SERVICE: 10/13/2017 PROCEDURE: Echocardiogram. FINDINGS: 1. Left ventricle chamber size is within normal limits. Left ventricular systolic function is markedly reduced. Overall ejection fraction is in the 10% to 15% range. 2. Left atrium, right atrium, and right ventricle chamber sizes are mildly dilated. ECHOCARDIOGRAM REPORT [id number] SATNAM SHAIKH 3. Valvular structures have normal structure and motion. 4. Doppler interrogation reveals moderate mitral regurgitation, moderate tricuspid regurgitation, no other valvular insufficiency or stenosis. Pulmonary systolic pressure is estimated 36 mmHg. 5. No evidence of pericardial effusion or left ventricular thrombus. TRANSINT:[id number] Voice Confirmation ID: [id number] DOCUMENT ID: [id number] CAROLA JOHNSON MD at 1230 CC: [id number] DICTATION DATE: 10/13/17 1155 SERVICE ASSOCIATE: 10/13/17 1212 ADM IN [facility] [address] [place] [address]
[~2017-10-12 10:09] MED LIST changes: +PLAVIX75 MG PO
[2017-10-12 10:40] LABS: BASOPHILS 0.3 % (0-2); EOSINOPHILS 2.4 % (0-7); HEMATOCRIT 41.4 % (42.0-54.0); HEMOGLOBIN 13.7 g/dL (13.5-17.5); IMMATURE GRANULOCYTES 0.2 % (0-5); LYMPHOCYTES 20.3 % (15-50); MCH 30.3 pg (26.0-34.0); MCHC 33.1 g/dL (31.0-37.0); MCV 91.6 fL (80.0-100.0); MEAN PLATELET VOLUME 11.2 fL (7.4-10.4); MONOCYTES 10.9 % (2-11); NEUTROPHILS 65.9 % (40-80); RBC 4.52 10x6/uL (4.20-6.10); RDW 15.3 % (11.5-14.5); WBC 6.6 10x3/uL (4.8-10.8)
[2017-10-12 10:43] LABS: PLATELET COUNT 152 10x3/uL (130-400)
[2017-10-12 10:58] LABS: ALBUMIN 3.1 g/dL (3.4-5.0); ALKALINE PHOSPHATASE 96 U/L (46-116); ALT (SGPT) 18 U/L (10-68); BILIRUBIN - TOTAL 1.33 mg/dL (0.2-1.3); CALC OSMOLALITY 286 mosm/kg (275-300); CALCIUM 8.4 mg/dL (8.5-10.1); CARBON DIOXIDE 30.9 mmol/L (21.0-32.0); CHLORIDE - SERUM 102 mmol/L (98-107); CREATININE - SERUM 1.5 mg/dL (0.6-1.3); POTASSIUM - SERUM 3.6 mmol/L (3.5-5.1); SODIUM 139 mmol/L (136-145); UREA NITROGEN 29 mg/dL (7-18); eGFR NON AFRICAN AMERICAN 51 mL/min (90-120)
[2017-10-12 11:00] LABS: GLUCOSE 148 mg/dL (74-106)
[2017-10-12 11:14] LABS: CKMB 2.1 U/L (0.0-3.6); CREATINE KINASE 40 UL (21-232); PRO BNP 10927 pg/mL (0-125); THYROID STIMULATING HORMONE 18.24 uIU/mL (0.36-3.74)
[2017-10-12 11:22] LABS: TROPONIN-I 0.077 ng/mL (0.000-0.060)
[2017-10-12 13:33] LABS: APPEARANCE CLEAR (CLEAR); BILIRUBIN NEGATIVE (NEGATIVE); COLOR YELLOW (YELLOW); GLUCOSE NEGATIVE (NEGATIVE); KETONE NEGATIVE (NEGATIVE); NITRITE NEGATIVE (NEGATIVE); PROTEIN 1+ mg/dL (NEGATIVE); SPECIFIC GRAVITY 1.015 (1.005-1.020); UROBILINOGEN NORMAL (NORMAL)
[2017-10-12 13:35] LABS: EPITHELIAL CELLS 0-5 /hpf (0-5); RED CELLS - URINE 0-5 /hpf (0-5); WHITE CELLS - URINE 0-5 /hpf (0-5)
[2017-10-12 13:36] LABS: BACTERIA FEW /hpf (NONE SEEN)
[2017-10-12 16:51] LABS: CKMB 1.5 U/L (0.0-3.6); CREATINE KINASE 117 UL (21-232)
[2017-10-12 17:02] LABS: TROPONIN-I 0.067 ng/mL (0.000-0.060)
[2017-10-12 23:00] LABS: CREATINE KINASE 58 UL (21-232)
[2017-10-12 23:09] LABS: TROPONIN-I 0.076 ng/mL (0.000-0.060)
[2017-10-13] VITALS (23 sets, daily range): BP systolic 80–109; BP diastolic 69–93; Ht 170.2 cm; Wt 72.5 kg
[2017-10-13 04:56] LABS: BASOPHILS 0.5 % (0-2); EOSINOPHILS 1.8 % (0-7); HEMATOCRIT 45.7 % (42.0-54.0); HEMOGLOBIN 14.7 g/dL (13.5-17.5); IMMATURE GRANULOCYTES 0.5 % (0-5); LYMPHOCYTES 25.2 % (15-50); MCHC 32.2 g/dL (31.0-37.0); MCV 93.3 fL (80.0-100.0); MEAN PLATELET VOLUME 11.9 fL (7.4-10.4); MONOCYTES 11.4 % (2-11); NEUTROPHILS 60.6 % (40-80); PLATELET COUNT 172 10x3/uL (130-400); RDW 15.2 % (11.5-14.5)
[2017-10-13 04:58] LABS: WBC 8.4 10x3/uL (4.8-10.8)
[2017-10-13 05:39] LABS: ALBUMIN 2.9 g/dL (3.4-5.0); ALKALINE PHOSPHATASE 95 U/L (46-116); ALT (SGPT) 19 U/L (10-68); BILIRUBIN - TOTAL 1.33 mg/dL (0.2-1.3); CARBON DIOXIDE 27.5 mmol/L (21.0-32.0); CHLORIDE - SERUM 100 mmol/L (98-107); CKMB 1.6 U/L (0.0-3.6); CREATINE KINASE 30 UL (21-232); MAGNESIUM - SERUM 1.2 mg/dL (1.8-2.4); POTASSIUM - SERUM 3.8 mmol/L (3.5-5.1); PRO BNP 10277 pg/mL (0-125); PROTEIN - SERUM 7.8 g/dL (6.4-8.2); SODIUM 138 mmol/L (136-145); T4 THYROXIN - FREE 1.02 ng/dL (0.76-1.46); THYROID STIMULATING HORMONE 26.19 uIU/mL (0.36-3.74); UREA NITROGEN 30 mg/dL (7-18)
[2017-10-13 05:42] LABS: CALC OSMOLALITY 279 mosm/kg (275-300); CREATININE - SERUM 1.9 mg/dL (0.6-1.3); GLUCOSE 67 mg/dL (74-106); TROPONIN-I 0.068 ng/mL (0.000-0.060); eGFR NON AFRICAN AMERICAN 38 mL/min (90-120)
[2017-10-13 18:23] LABS: MAGNESIUM - SERUM 1.3 mg/dL (1.8-2.4); POTASSIUM - SERUM 4.1 mmol/L (3.5-5.1)
[2017-10-14] VITALS (24 sets, daily range): BP systolic 72–95; BP diastolic 31–78
[2017-10-14 04:48] LABS: BASOPHILS 0.2 % (0-2); HEMATOCRIT 36.7 % (42.0-54.0); HEMOGLOBIN 12.3 g/dL (13.5-17.5); IMMATURE GRANULOCYTES 0.3 % (0-5); LYMPHOCYTES 11.3 % (15-50); MCH 30.1 pg (26.0-34.0); MCHC 33.5 g/dL (31.0-37.0); MEAN PLATELET VOLUME 11.9 fL (7.4-10.4); MONOCYTES 9.1 % (2-11); NEUTROPHILS 78.1 % (40-80); RBC 4.08 10x6/uL (4.20-6.10); RDW 14.8 % (11.5-14.5); WBC 6.3 10x3/uL (4.8-10.8)
[2017-10-14 04:55] LABS: PLATELET COUNT 100 10x3/uL (130-400)
[2017-10-14 05:12] LABS: ALBUMIN 2.3 g/dL (3.4-5.0); ANION GAP 11.5 mmol/L (8-16); BILIRUBIN - TOTAL 0.98 mg/dL (0.2-1.3); CALCIUM 7.7 mg/dL (8.5-10.1); CARBON DIOXIDE 29.4 mmol/L (21.0-32.0); CREATININE - SERUM 1.5 mg/dL (0.6-1.3); PHOSPHOROUS 4.6 mg/dL (2.5-4.9); POTASSIUM - SERUM 3.9 mmol/L (3.5-5.1); PROTEIN - SERUM 6.5 g/dL (6.4-8.2)
[2017-10-14 12:14] LABS: MAGNESIUM - SERUM 1.2 mg/dL (1.8-2.4)
[2017-10-15] VITALS (16 sets, daily range): BP systolic 77–96; BP diastolic 46–82
[2017-10-15 04:26] LABS: BASOPHILS 0 % (0-2); EOSINOPHILS 1.7 % (0-7); HEMATOCRIT 37.1 % (42.0-54.0); HEMOGLOBIN 12.3 g/dL (13.5-17.5); IMMATURE GRANULOCYTES 0.2 % (0-5); LYMPHOCYTES 20.2 % (15-50); MCH 29.6 pg (26.0-34.0); MCHC 33.2 g/dL (31.0-37.0); MCV 89.4 fL (80.0-100.0); MEAN PLATELET VOLUME 11.5 fL (7.4-10.4); MONOCYTES 10.2 % (2-11); NEUTROPHILS 67.7 % (40-80); PLATELET COUNT 107 10x3/uL (130-400); RBC 4.15 10x6/uL (4.20-6.10); RDW 14.8 % (11.5-14.5)
[2017-10-15 04:46] LABS: INR 1.32 (0.85-1.17)
[2017-10-15 04:47] LABS: APTT 33.8 SECONDS (22.8-39.4); D-DIMER-QUANTITATIVE 1.7 ug/mLFEU (0.20-0.54)
[2017-10-15 04:48] LABS: WBC 4.1 10x3/uL (4.8-10.8)
[2017-10-15 05:03] LABS: % SATURATION 16 % (15-55); IRON 39 ug/dl (35-150); TOTAL IRON BIND CAPACITY 240 ug/dl (260-445); UNSAT IRON BIND CAPACITY 201 ug/dl (150-375)
[2017-10-15 05:09] LABS: ALBUMIN 2.5 g/dL (3.4-5.0); ANION GAP 6.6 mmol/L (8-16); BILIRUBIN - TOTAL 0.93 mg/dL (0.2-1.3); CALCIUM 7.6 mg/dL (8.5-10.1); CARBON DIOXIDE 32.8 mmol/L (21.0-32.0); CREATININE - SERUM 1.2 mg/dL (0.6-1.3); MAGNESIUM - SERUM 1.1 mg/dL (1.8-2.4); PHOSPHOROUS 3.7 mg/dL (2.5-4.9); POTASSIUM - SERUM 3.4 mmol/L (3.5-5.1); PROTEIN - SERUM 6.9 g/dL (6.4-8.2)
[2017-10-16 00:46] VITALS: BP 95/68
[2017-10-16 05:03] VITALS: BP 89/72
[2017-10-16 05:30] LABS: BASOPHILS 0.2 % (0-2); EOSINOPHILS 1.3 % (0-7); HEMATOCRIT 36.9 % (42.0-54.0); HEMOGLOBIN 12.2 g/dL (13.5-17.5); IMMATURE GRANULOCYTES 0.2 % (0-5); MCH 29.5 pg (26.0-34.0); MCHC 33.1 g/dL (31.0-37.0); MCV 89.1 fL (80.0-100.0); MEAN PLATELET VOLUME 11.1 fL (7.4-10.4); MONOCYTES 10.7 % (2-11); NEUTROPHILS 65.6 % (40-80); PLATELET COUNT 107 10x3/uL (130-400); RBC 4.14 10x6/uL (4.20-6.10); RDW 15.1 % (11.5-14.5); WBC 4.5 10x3/uL (4.8-10.8)
[2017-10-16 05:47] LABS: ANION GAP 7.3 mmol/L (8-16); CALCIUM 7.8 mg/dL (8.5-10.1); CARBON DIOXIDE 32.3 mmol/L (21.0-32.0); CREATININE - SERUM 1.1 mg/dL (0.6-1.3); MAGNESIUM - SERUM 1.2 mg/dL (1.8-2.4); PHOSPHOROUS 2.8 mg/dL (2.5-4.9); POTASSIUM - SERUM 3.6 mmol/L (3.5-5.1)
[2017-10-16 21:35] VITALS: BP 96/74
[2017-10-17 01:10] VITALS: BP 95/71
[2017-10-17 05:05] VITALS: BP 100/75
[2017-10-17 05:10] LABS: BASOPHILS 0.2 % (0-2); EOSINOPHILS 2.2 % (0-7); HEMATOCRIT 38.7 % (42.0-54.0); HEMOGLOBIN 12.7 g/dL (13.5-17.5); IMMATURE GRANULOCYTES 0.2 % (0-5); LYMPHOCYTES 18.9 % (15-50); MCH 29.5 pg (26.0-34.0); MCHC 32.8 g/dL (31.0-37.0); MEAN PLATELET VOLUME 11.1 fL (7.4-10.4); MONOCYTES 11.1 % (2-11); NEUTROPHILS 67.4 % (40-80); PLATELET COUNT 100 10x3/uL (130-400); RDW 15.2 % (11.5-14.5); WBC 4.5 10x3/uL (4.8-10.8)
[2017-10-17 05:39] LABS: ALBUMIN 2.5 g/dL (3.4-5.0); ALKALINE PHOSPHATASE 96 U/L (46-116); ALT (SGPT) 17 U/L (10-68); BILIRUBIN - TOTAL 0.92 mg/dL (0.2-1.3); CALC OSMOLALITY 277 mosm/kg (275-300); CALCIUM 8.1 mg/dL (8.5-10.1); CARBON DIOXIDE 28.8 mmol/L (21.0-32.0); CHLORIDE - SERUM 100 mmol/L (98-107); GLUCOSE 160 mg/dL (74-106); POTASSIUM - SERUM 3.7 mmol/L (3.5-5.1); SODIUM 136 mmol/L (136-145); UREA NITROGEN 22 mg/dL (7-18); eGFR NON AFRICAN AMERICAN 81 mL/min (90-120)
[2017-10-17 08:16] VITALS: BP 97/75
[2017-10-17 11:14] VITALS: BP 100/76
[2017-10-17 11:17] LABS: HEPARIN INDUCED PLATELET AB 0.321 OD (0.000-0.400)
[2017-10-17 15:29] VITALS: BP 104/69
[2017-10-17 20:00] VITALS: BP 119/75
[2017-10-18] VITALS: BP 113/58
[2017-10-18 04:00] VITALS: BP 118/78
[2017-10-18 04:10] LABS: ANGIOTENSIN CONVERTING ENZYME 49 U/L (14-82)
[2017-10-18 05:08] LABS: BASOPHILS 0.5 % (0-2); EOSINOPHILS 2.1 % (0-7); HEMOGLOBIN 12.6 g/dL (13.5-17.5); IMMATURE GRANULOCYTES 0.2 % (0-5); LYMPHOCYTES 19.8 % (15-50); MCH 29.6 pg (26.0-34.0); MCHC 33.2 g/dL (31.0-37.0); MCV 89.4 fL (80.0-100.0); MEAN PLATELET VOLUME 10.7 fL (7.4-10.4); MONOCYTES 14.7 % (2-11); NEUTROPHILS 62.7 % (40-80); PLATELET COUNT 106 10x3/uL (130-400); RBC 4.25 10x6/uL (4.20-6.10); RDW 15.1 % (11.5-14.5)
[2017-10-18 05:14] LABS: WBC 6.1 10x3/uL (4.8-10.8)
[2017-10-18 05:33] LABS: ALBUMIN 2.5 g/dL (3.4-5.0); ALKALINE PHOSPHATASE 96 U/L (46-116); ALT (SGPT) 15 U/L (10-68); BILIRUBIN - TOTAL 0.98 mg/dL (0.2-1.3); CALC OSMOLALITY 270 mosm/kg (275-300); CALCIUM 8.3 mg/dL (8.5-10.1); CARBON DIOXIDE 30.6 mmol/L (21.0-32.0); CHLORIDE - SERUM 100 mmol/L (98-107); CREATININE - SERUM 0.9 mg/dL (0.6-1.3); POTASSIUM - SERUM 3.4 mmol/L (3.5-5.1); SODIUM 135 mmol/L (136-145); UREA NITROGEN 19 mg/dL (7-18); eGFR NON AFRICAN AMERICAN > 90 mL/min (90-120)
[2017-10-18 05:36] LABS: GLUCOSE 89 mg/dL (74-106)
[2017-10-18 09:13] VITALS: BP 93/63
[2017-10-18 12:34] VITALS: BP 121/86
[2017-10-18 16:38] VITALS: BP 122/81
[2017-10-18 20:30] VITALS: BP 92/66
[2017-10-19 04:30] VITALS: BP 130/91
[2017-10-19 07:13] LABS: BASOPHILS 0.4 % (0-2); EOSINOPHILS 1.9 % (0-7); HEMATOCRIT 38.5 % (42.0-54.0); HEMOGLOBIN 12.8 g/dL (13.5-17.5); IMMATURE GRANULOCYTES 0.2 % (0-5); MCHC 33.2 g/dL (31.0-37.0); MCV 90.4 fL (80.0-100.0); MEAN PLATELET VOLUME 11.6 fL (7.4-10.4); MONOCYTES 10.6 % (2-11); NEUTROPHILS 65.9 % (40-80); PLATELET COUNT 99 10x3/uL (130-400); RBC 4.26 10x6/uL (4.20-6.10); RDW 15.3 % (11.5-14.5); WBC 5.7 10x3/uL (4.8-10.8)
[2017-10-19 07:34] LABS: PLATELET ESTIMATE DECREASED
[2017-10-19 07:49] LABS: ALBUMIN 2.6 g/dL (3.4-5.0); ALKALINE PHOSPHATASE 109 U/L (46-116); ALT (SGPT) 19 U/L (10-68); BILIRUBIN - TOTAL 1.13 mg/dL (0.2-1.3); CALC OSMOLALITY 280 mosm/kg (275-300); CALCIUM 8.4 mg/dL (8.5-10.1); CARBON DIOXIDE 28.3 mmol/L (21.0-32.0); CHLORIDE - SERUM 100 mmol/L (98-107); CREATININE - SERUM 0.9 mg/dL (0.6-1.3); GLUCOSE 203 mg/dL (74-106); POTASSIUM - SERUM 3.6 mmol/L (3.5-5.1); PROTEIN - SERUM 6.9 g/dL (6.4-8.2); SODIUM 136 mmol/L (136-145); UREA NITROGEN 20 mg/dL (7-18); eGFR NON AFRICAN AMERICAN > 90 mL/min (90-120)
[2017-10-19 08:57] VITALS: BP 128/90
[2017-10-19 12:33] VITALS: BP 97/69
[2017-10-19 15:11] LABS: FUNGAL - ASP FLAVUS Negative (Neg:<1:1); FUNGAL - ASP NIGER Negative (Neg:<1:1); FUNGAL - ASPER FUMIGATUS Negative (Neg:<1:1)
[2017-10-19] MEDS ORDERED: OMNICEF300 MG PO (15:49)
[2017-10-19] MEDS ORDERED: ALBUTEROL1.25 MG/3 INH (15:51)
[2017-10-19] MEDS ORDERED: ATROVENT 0.02%2.5 ML UPD (15:52)
[2017-10-19 16:09] LABS: FACTOR VIII ACTIVITY 193 % (57-163)
[2017-10-19 19:09] LABS: FACTOR VIII - APTT 28.4 sec (22.9-30.2)
== END 2017-10-19 17:32 | disposition home or self-care (01) | DRG 291 ==
LOC: D.ER 10:09 → D.M2 15:44 → D.EDHOLD 15:44 → D.ICU 15:44 → D.M2 10-15 16:21
PROVIDERS: Family Medicine; Internal Medicine Cardiovascular Disease; Internal Medicine Pulmonary Disease
DX: I11.0 Hypertensive heart disease with heart failure (principal); J69.0 Pneumonitis due to inhalation of food and vomit; I24.8 Other forms of acute ischemic heart disease; J44.1 Chronic obstructive pulmonary disease with (acute) exacerbation; J90 Pleural effusion, not elsewhere classified; R18.8 Other ascites; I50.23 Acute on chronic systolic (congestive) heart failure; I25.10 Atherosclerotic heart disease of native coronary artery without angina pectoris; I27.20 Pulmonary hypertension, unspecified; R09.02 Hypoxemia; D64.9 Anemia, unspecified; D69.6 Thrombocytopenia, unspecified; R59.0 Localized enlarged lymph nodes; E87.6 Hypokalemia; I34.0 Nonrheumatic mitral (valve) insufficiency; I07.1 Rheumatic tricuspid insufficiency; I73.9 Peripheral vascular disease, unspecified; E03.9 Hypothyroidism, unspecified; E78.5 Hyperlipidemia, unspecified; Z77.090 Contact with and (suspected) exposure to asbestos; N40.0 Benign prostatic hyperplasia without lower urinary tract symptoms; J30.9 Allergic rhinitis, unspecified; Z72.89 Other problems related to lifestyle; R53.81 Other malaise; E11.22 Type 2 diabetes mellitus with diabetic chronic kidney disease; I13.0 Hypertensive heart and chronic kidney disease with heart failure and stage 1 through stage 4 chronic kidney disease, or unspecified chronic kidney disease; N18.9 Chronic kidney disease, unspecified